=== PATIENT | female | born 1980 | race Caucasian/White ===

== ENCOUNTER 2021-05-23 01:10 | Emergency (ER) | payer SELFPAY ==
[~2021-05-23] VITALS: Ht 157.5 cm; Wt 61.2 kg
[2021-05-23 01:10] VITALS: BP 137/92
--- NOTE | 2021-05-23 01:10 | NUR ---
MONCHO MORRISON TAKEN TO CHAIR C
--- NOTE | 2021-05-23 01:30 | NUR ---
PATIENT BIB [employer]. PATIENT EXAMINED BY DR. SPRAGUE. PATIENT MEDICALLY CLEARED AND RELEASED IN CUSTODY IN STABLE CONDITION. ORIGINAL PRE-BOOK FORM GIVEN TO OFFICER KRISTEN, #[id number].
== END 2021-05-23 01:30 ==
LOC: MED 01:10
DX: Z02.89 Encounter for other administrative examinations (principal); V89.2XXA Person injured in unspecified motor-vehicle accident, traffic, initial encounter; Y93.89 Activity, other specified; Y92.89 Other specified places as the place of occurrence of the external cause; Y99.8 Other external cause status
CPT/HCPCS: 99283